=== PATIENT | female | born 1980 | race Caucasian/White ===

== ENCOUNTER 2022-07-22 14:06 | Emergency (ER) | payer MEDICAID ==
[~2022-07-22] VITALS: Ht 175.3 cm; Wt 155.1 kg
[~2022-07-22 14:06] MED LIST: ALBUPOW26; CLON0.3T PO; GABA300C10 PO; SERDISK
[2022-07-22] MEDS ORDERED: KETOROLAC TROMETH 60MG/2ML VIAL IM ONE (15:30)
[2022-07-22] MEDS ORDERED: ONDANSETRON ODT 4 MG TAB PO ONE (15:30)
[2022-07-22 15:34] LABS: Eosinophils # (auto) 0.1 10 ^3/uL (0-0.8); Eosinophils % (auto) 0.6 % (0.0-7.0); Hematocrit 33.6 % (36.0-46.0); Monocytes # (auto) 0.7 10 ^3/uL (0-1.3); Neutrophils # (auto) 8.3 10 ^3/uL (1.6-8.6)
[2022-07-22 15:35] LABS: Basophils # (auto) 0 10 ^3/uL (0-0.2); Basophils % (auto) 0.5 % (0.0-2.0); Hemoglobin 10.8 g/dL (12.2-16.2); Lymphocytes # (auto) 1.2 10 ^3/uL (0.4-5.4); Lymphocytes % (auto) 11.4 % (10.0-50.0); Mean Corpuscular Hemoglobin 26.2 pg (28.0-32.0); Mean Corpuscular Hgb Conc. 32.1 g/dL (32.0-36.0); Mean Corpuscular Volume 81.7 fL (80.0-100.0); Monocytes % (auto) 7.2 % (0.0-12.0); Neutrophils % (auto) 80.3 % (37.0-80.0); Nucleated Red Blood Cells % 0.2 %; Red Blood Cells 4.12 10^6/uL (4.0-5.20); Red Cell Distribution Width 17.2 % (11.8-14.3); White Blood Cell 10.4 10^3/uL (4.4-10.8)
[2022-07-22] MEDS ORDERED: SODIUM CHLORIDE 0.9% 1,000 ML IV ONE (15:45)
[2022-07-22 15:47] LABS: Albumin 3.3 g/dL (3.4-5.0); Calcium 8.7 mg/dL (8.5-10.1); Potassium 4.7 mmol/L (3.5-5.1)
[2022-07-22 15:47] LABS: Urine Bacteria MANY /hpf (None Seen); Urine Blood 1+ /uL (Negative); Urine Budding Yeast OCCASIONAL /hpf (None Seen); Urine Mucus FEW (None Seen); Urine Specific Gravity 1.015 (1.001-1.035); Urine WBC 135 /hpf (0 - 5)
[2022-07-22 15:51] LABS: BUN/Creatinine Ratio 6.9 (10.0-20.0); Bilirubin, Total 1.9 mg/dL (0.2-1.0); Total Protein 8.3 g/dL (6.4-8.2)
[2022-07-22] MEDS ORDERED: cefTRIAXone 1GM/50ML D5W 50 ML IV ONE (17:00)
[2022-07-22] MEDS ORDERED: HYDROcodone-ACET 5/325MG TAB PO ONE (17:30)
[2022-07-22] MEDS ORDERED: ONDA-144 PO (17:43)
[2022-07-22] MEDS ORDERED: CIPR-173 PO (17:43)
[2022-07-22] MEDS ORDERED: ACETAMINOPHEN 325 MG TAB PO ONE (18:00)
[2022-07-22 20:30] VITALS: BP 165/102
== END 2022-07-22 20:55 | disposition home or self-care (01) ==
LOC: ER 14:06
DX: N39.0 Urinary tract infection, site not specified (principal); K43.9 Ventral hernia without obstruction or gangrene; R11.2 Nausea with vomiting, unspecified; E11.9 Type 2 diabetes mellitus without complications; Z87.442 Personal history of urinary calculi; Z90.49 Acquired absence of other specified parts of digestive tract; Z98.890 Other specified postprocedural states; Z88.8 Allergy status to other drugs, medicaments and biological substances; Z88.2 Allergy status to sulfonamides; Z88.0 Allergy status to penicillin
CPT/HCPCS: 36415; 74176; 80053; 81001; 82962; 83690; 85025; 93005; 96365; 99285; J0696; J7030; Q0162

== ENCOUNTER 2023-01-22 12:53 | Inpatient (IN) | payer MEDICAID ==
[~2023-01-22] VITALS: Ht 175.3 cm; Wt 120.0 kg
[~2023-01-22 12:53] MED LIST changes: +CIPR-173 PO; +GABA-1250 PO; -GABA300C10 PO; +ONDA-144 PO
[2023-01-22 13:30] LABS: Basophils # (auto) 0.1 10 ^3/uL (0-0.2); Basophils % (auto) 0.7 % (0.0-2.0); Eosinophils # (auto) 0.1 10 ^3/uL (0-0.8); Eosinophils % (auto) 0.9 % (0.0-7.0); Hematocrit 37.2 % (36.0-46.0); Lymphocytes # (auto) 2.1 10 ^3/uL (0.4-5.4); Lymphocytes % (auto) 21.1 % (10.0-50.0); Mean Corpuscular Hemoglobin 26.9 pg (28.0-32.0); Mean Corpuscular Hgb Conc. 32.2 g/dL (32.0-36.0); Mean Corpuscular Volume 83.7 fL (80.0-100.0); Monocytes # (auto) 0.6 10 ^3/uL (0-1.3); Monocytes % (auto) 5.8 % (0.0-12.0); Neutrophils # (auto) 7.1 10 ^3/uL (1.6-8.6); Neutrophils % (auto) 71.5 % (37.0-80.0); Nucleated Red Blood Cells % 0.2 %; Red Blood Cells 4.45 10^6/uL (4.0-5.20); Red Cell Distribution Width 17.3 % (11.8-14.3)
[2023-01-22 13:47] LABS: Alanine Aminotransferase 13 U/L (7-40); Albumin 4.5 g/dL (3.2-4.8); Alkaline Phosphatase 86 U/L (46-116); Anion Gap 13 (5-15); Aspartate Aminotransferase 38 U/L (13-40); BUN/Creatinine Ratio 7.6 (10.0-20.0); Blood Urea Nitrogen 7 mg/dL (9-23); Calcium 9.4 mg/dL (8.7-10.4); Carbon Dioxide 20 mmol/L (20-30); Chloride 102 mmol/L (98-107); Glucose 98 mg/dL (74-106); Lipase 28 U/L (12-53); Potassium 3.9 mmol/L (3.5-5.1); Sodium 135 mmol/L (136-145)
[2023-01-22 13:48] LABS: Bilirubin, Total 1.3 mg/dL (0.2-1.0); Total Protein 7.5 g/dL (5.7-8.2)
[2023-01-22] MEDS ORDERED: ONDANSETRON HCL 4 MG/2 ML VIAL IV ONE (15:00)
[2023-01-22] MEDS ORDERED: SODIUM CHLORIDE 0.9% 1,000 ML IV ONE ×2 (15:00)
[2023-01-22] MEDS ORDERED: MORPHINE SULFATE 4 MG/ML SYR/VIAL IV ONE (15:00)
[2023-01-22 15:11] LABS: Urine Bacteria FEW /hpf (None Seen); Urine Blood Negative /uL (Negative); Urine Clarity HAZY (Clear); Urine Color Colorless (Yellow); Urine Protein, UAD Negative (Negative); Urine Specific Gravity 1.008 (1.001-1.035); Urine Urobilinogen Normal (Negative); Urine WBC 3 /hpf (0 - 5)
[2023-01-22] MEDS ORDERED: DOCUSATE SOD 100 MG CAP PO PRN (20:45)
[2023-01-22] MEDS ORDERED: ACETAMINOPHEN 325 MG TAB PO PRN (20:45)
[2023-01-22] MEDS: D5W/SOD CHLO 0.9% 1,000 ML IV SCH (23:03)
[2023-01-22] MEDS: HYDROcodone-ACET 5/325MG TAB PO PRN (23:04)
[2023-01-23] VITALS (7 sets, daily range): BP systolic 139–154; BP diastolic 78–95; PULSE 94–111; RESP 11–19; TEMP 98.1–98.5; O2SAT 96–100
[2023-01-23] MEDS: ONDANSETRON HCL 4 MG/2 ML VIAL IV PRN ×3 (02:37→10:56)
[2023-01-23] MEDS: MORPHINE SULFATE INJ 2 MG/ml SYRG IV PRN ×3 (02:38→19:51)
[2023-01-23] MEDS: HYDROcodone-ACET 5/325MG TAB PO PRN ×3 (04:48→15:30)
[2023-01-23 05:38] LABS: Basophils # (auto) 0.1 10 ^3/uL (0-0.2); Eosinophils # (auto) 0.1 10 ^3/uL (0-0.8); Eosinophils % (auto) 1.2 % (0.0-7.0); Hematocrit 35.4 % (36.0-46.0); Hemoglobin 11.3 g/dL (12.2-16.2); Lymphocytes # (auto) 1.9 10 ^3/uL (0.4-5.4); Lymphocytes % (auto) 26.5 % (10.0-50.0); Mean Corpuscular Volume 84.5 fL (80.0-100.0); Monocytes # (auto) 0.5 10 ^3/uL (0-1.3); Monocytes % (auto) 6.8 % (0.0-12.0); Neutrophils # (auto) 4.7 10 ^3/uL (1.6-8.6); Neutrophils % (auto) 64.5 % (37.0-80.0); Nucleated Red Blood Cells % 0.1 %; Red Blood Cells 4.19 10^6/uL (4.0-5.20); Red Cell Distribution Width 17.1 % (11.8-14.3); White Blood Cell 7.3 10^3/uL (4.4-10.8)
[2023-01-23 06:20] LABS: Albumin 4.2 g/dL (3.2-4.8); Alkaline Phosphatase 72 U/L (46-116); Anion Gap 17 (5-15); Aspartate Aminotransferase 29 U/L (13-40); Calcium 8.9 mg/dL (8.7-10.4); Carbon Dioxide 16 mmol/L (20-30); Chloride 106 mmol/L (98-107); Glucose 72 mg/dL (74-106); Potassium 3.5 mmol/L (3.5-5.1); Sodium 139 mmol/L (136-145)
[2023-01-23 06:21] LABS: Total Protein 7.3 g/dL (5.7-8.2)
[2023-01-23 06:22] LABS: Alanine Aminotransferase < 9 U/L (7-40); Blood Urea Nitrogen < 5 mg/dL (9-23)
[2023-01-23] MEDS: D5W/SOD CHLO 0.9% 1,000 ML IV SCH ×2 (10:05→23:25)
[2023-01-23] MEDS: DICYCLOMINE HCL 10 MG CAP PO SCH ×2 (18:17→22:51)
[2023-01-23] MEDS: ALBUTEROL MEDNEB 2.5 mg/3ml NEB NEB SCH (18:31)
[2023-01-23] MEDS: GABAPENTIN 300 MG CAP PO SCH (22:51)
[2023-01-23] MEDS: PANTOPRAZOLE 40 MG/10 ML VIAL INJ IV SCH (22:52)
[2023-01-23] MEDS: cloNIDine HCL 0.1 MG TAB PO SCH (22:52)
[2023-01-24] VITALS (9 sets, daily range): BP systolic 142–165; BP diastolic 86–97; PULSE 90–110; RESP 15–18; TEMP 98.1–98.9; O2SAT 94–100
[2023-01-24] MEDS: ONDANSETRON HCL 4 MG/2 ML VIAL IV PRN ×5 (00:54→20:22)
[2023-01-24] MEDS: MORPHINE SULFATE INJ 2 MG/ml SYRG IV PRN ×5 (00:57→20:25)
[2023-01-24] MEDS: DICYCLOMINE HCL 10 MG CAP PO SCH ×4 (05:53→21:08)
[2023-01-24] MEDS: GABAPENTIN 300 MG CAP PO SCH ×3 (05:53→21:07)
[2023-01-24] MEDS: hydrALAZINE HCL 20 MG/ML VL IV PRN ×3 (06:34→18:30)
[2023-01-24] MEDS: ALBUTEROL MEDNEB 2.5 mg/3ml NEB NEB SCH ×2 (07:09→22:21)
[2023-01-24] MEDS: PANTOPRAZOLE 40 MG/10 ML VIAL INJ IV SCH ×2 (10:48→21:07)
[2023-01-24] MEDS: cloNIDine HCL 0.1 MG TAB PO SCH ×2 (10:48→21:14)
[2023-01-24] MEDS: D5W/SOD CHLO 0.9% 1,000 ML IV SCH (16:15)
[2023-01-24] MEDS: HYDROcodone-ACET 5/325MG TAB PO PRN (18:36)
[2023-01-25] VITALS (9 sets, daily range): BP systolic 134–164; BP diastolic 92–99; PULSE 71–119; RESP 15–19; TEMP 97.7–98.6; O2SAT 92–100
[2023-01-25] MEDS: ONDANSETRON HCL 4 MG/2 ML VIAL IV PRN ×6 (00:47→23:00)
[2023-01-25] MEDS: MORPHINE SULFATE INJ 2 MG/ml SYRG IV PRN ×5 (00:48→22:02)
[2023-01-25] MEDS: D5W/SOD CHLO 0.9% 1,000 ML IV SCH ×2 (02:05→16:50)
[2023-01-25] MEDS: DICYCLOMINE HCL 10 MG CAP PO SCH ×4 (05:06→22:00)
[2023-01-25] MEDS: GABAPENTIN 300 MG CAP PO SCH ×3 (05:07→22:01)
[2023-01-25 06:00] LABS: INR 1.1 (0.9-1.15); Partial Thromboplastin Time 29.9 SEC (24.5-34.5); Prothrombin Time 11.5 sec (9.3-11.8)
[2023-01-25] MEDS ORDERED: LIDOCAINE VISCOUS 2% 15ML UD ONE (06:49)
[2023-01-25] MEDS: PANTOPRAZOLE 40 MG/10 ML VIAL INJ IV SCH ×2 (09:20→22:02)
[2023-01-25] MEDS: cloNIDine HCL 0.1 MG TAB PO SCH ×2 (09:22→22:01)
[2023-01-25] MEDS: ALBUTEROL MEDNEB 2.5 mg/3ml NEB NEB SCH ×2 (09:48→22:00)
[2023-01-25] MEDS ORDERED: fentaNYL CITRATE 100 MCG/2 ML VL ONE (12:35)
[2023-01-25] MEDS ORDERED: MIDAZOLAM HCL 2MG/2ML 2ml VIAL (1mg/ml) ONE (12:36)
[2023-01-25] MEDS ORDERED: DexAMETHasone SOD PHOS 10MG/1ML VIAL INJ ONE (12:47)
[2023-01-25] MEDS ORDERED: PROPOFOL 10 MG/ML 20 ML IV ONE (12:47)
[2023-01-25] MEDS: NYSTATIN (MOUTH-THROAT) 500,000 UNITS/5 ML SUSP MT SCH ×2 (18:48→22:00)
[2023-01-25] MEDS: HYDROcodone-ACET 5/325MG TAB PO PRN (18:48)
[2023-01-25] MEDS: SUCRALFATE 1 GM/10 ML ORAL SUSP PO SCH (18:49)
[2023-01-26] VITALS (7 sets, daily range): BP systolic 123–132; BP diastolic 67–87; PULSE 71–89; RESP 14–19; TEMP 37.2; O2SAT 94–96
[2023-01-26] MEDS: DICYCLOMINE HCL 10 MG CAP PO SCH ×2 (06:19→12:00)
[2023-01-26] MEDS: ONDANSETRON HCL 4 MG/2 ML VIAL IV PRN ×2 (06:19→14:57)
[2023-01-26] MEDS: GABAPENTIN 300 MG CAP PO SCH ×2 (06:19→14:57)
[2023-01-26] MEDS: NYSTATIN (MOUTH-THROAT) 500,000 UNITS/5 ML SUSP MT SCH ×2 (06:19→12:00)
[2023-01-26] MEDS: SUCRALFATE 1 GM/10 ML ORAL SUSP PO SCH ×2 (06:19→12:00)
[2023-01-26] MEDS: MORPHINE SULFATE INJ 2 MG/ml SYRG IV PRN ×2 (06:28→14:58)
[2023-01-26] MEDS: PANTOPRAZOLE 40 MG/10 ML VIAL INJ IV SCH (09:21)
[2023-01-26] MEDS: cloNIDine HCL 0.1 MG TAB PO SCH (09:22)
[2023-01-26] MEDS: HYDROcodone-ACET 5/325MG TAB PO PRN (09:22)
[2023-01-26] MEDS: ALBUTEROL MEDNEB 2.5 mg/3ml NEB NEB SCH (10:04)
[2023-01-26] MEDS ORDERED: SUCR1SUS26 PO (14:11)
[2023-01-26] MEDS ORDERED: DICY10CA PO (14:11)
[2023-01-26] MEDS ORDERED: NYS5LQ MT (14:11)
[2023-01-26] MEDS ORDERED: PANT40T PO (14:11)
[2023-01-26 16:19] LABS: Urine Bacteria FEW /hpf (None Seen); Urine Blood Negative /uL (Negative); Urine Clarity HAZY (Clear); Urine Color Yellow (Yellow); Urine Mucus FEW (None Seen); Urine Protein, UAD TRACE (Negative); Urine Specific Gravity 1.026 (1.001-1.035); Urine WBC <1 /hpf (0 - 5); Urine pH 5.5 (5.0-8.0)
[2023-01-26] MEDS ORDERED: ALBUTEROL MEDNEB 2.5 mg/3ml NEB ONE (18:18)
== END 2023-01-26 17:45 | disposition home or self-care (01) | DRG 241 ==
LOC: EEVIPCON 12:53 → ER 12:53 → OVERFLOW 22:50 → CENTRAL 01-23 16:45
PROVIDERS: ADMIT Nurse Practitioner Family; ATTEND Hospitalist
PROC: 0DB78ZX Excision of Stomach, Pylorus, Via Natural or Artificial Opening Endoscopic, Diagnostic (ICD-10-PCS; principal; 2023-01-25 12:35)
DX: K29.70 Gastritis, unspecified, without bleeding (principal); K76.0 Fatty (change of) liver, not elsewhere classified; E11.9 Type 2 diabetes mellitus without complications; K20.90 Esophagitis, unspecified without bleeding; N20.0 Calculus of kidney; I16.0 Hypertensive urgency; I10 Essential (primary) hypertension; K44.9 Diaphragmatic hernia without obstruction or gangrene; K31.7 Polyp of stomach and duodenum; R16.1 Splenomegaly, not elsewhere classified; K59.00 Constipation, unspecified; Z88.0 Allergy status to penicillin; Z88.2 Allergy status to sulfonamides; Z88.8 Allergy status to other drugs, medicaments and biological substances; Z87.442 Personal history of urinary calculi; Z83.3 Family history of diabetes mellitus; Z82.5 Family history of asthma and other chronic lower respiratory diseases; Z82.49 Family history of ischemic heart disease and other diseases of the circulatory system; Z90.49 Acquired absence of other specified parts of digestive tract
CPT/HCPCS: 36415; 70450; 74176; 80053; 81001; 82962; 83690; 84702; 85025; 85610; 85730; 86850; 86900; 86901; 94640; 96361; 96374; 96375; 96376; C9113; G0378; J1100; J2250; J2405; J2704; J7042

== ENCOUNTER 2023-01-28 09:32 | Emergency (ER) | payer MEDICAID ==
[~2023-01-28] VITALS: Ht 175.3 cm; Wt 123.0 kg
[~2023-01-28 09:32] MED LIST changes: -CIPR-173 PO; +DICY10CA PO; +NYS5LQ MT; +PANT40T PO; +SUCR1SUS26 PO
[2023-01-28 11:27] LABS: Alanine Aminotransferase 22 U/L (7-40); Albumin 4.1 g/dL (3.2-4.8); Alkaline Phosphatase 68 U/L (46-116); Anion Gap 10 (5-15); Aspartate Aminotransferase 45 U/L (13-40); Calcium 8.8 mg/dL (8.7-10.4); Carbon Dioxide 25 mmol/L (20-30); Chloride 104 mmol/L (98-107); Glucose 126 mg/dL (74-106); Lipase 27 U/L (12-53); Sodium 139 mmol/L (136-145)
[2023-01-28 11:28] LABS: Bilirubin, Total 1.2 mg/dL (0.2-1.0); Total Protein 6.9 g/dL (5.7-8.2)
[2023-01-28 11:29] LABS: BUN/Creatinine Ratio 6.5 (10.0-20.0); Blood Urea Nitrogen < 5 mg/dL (9-23)
[2023-01-28 11:32] LABS: Urine Bacteria FEW /hpf (None Seen); Urine Blood TRACE /uL (Negative); Urine Clarity HAZY (Clear); Urine Color Yellow (Yellow); Urine Mucus FEW (None Seen); Urine Protein, UAD 1+ (Negative); Urine Specific Gravity 1.038 (1.001-1.035); Urine WBC 62 /hpf (0 - 5)
[2023-01-28 12:18] LABS: Basophils # (auto) 0 10 ^3/uL (0-0.2); Eosinophils # (auto) 0 10 ^3/uL (0-0.8); Lymphocytes # (auto) 1.5 10 ^3/uL (0.4-5.4); Monocytes # (auto) 0.6 10 ^3/uL (0-1.3); Nucleated Red Blood Cells % 0.1 %
[2023-01-28 12:23] LABS: Basophils % (auto) 0.8 % (0.0-2.0); Eosinophils % (auto) 0.7 % (0.0-7.0); Hematocrit 33.8 % (36.0-46.0); Lymphocytes % (auto) 28.5 % (10.0-50.0); Mean Corpuscular Hemoglobin 26.9 pg (28.0-32.0); Mean Corpuscular Hgb Conc. 32.5 g/dL (32.0-36.0); Mean Corpuscular Volume 82.6 fL (80.0-100.0); Monocytes % (auto) 11.6 % (0.0-12.0); Neutrophils # (auto) 3.1 10 ^3/uL (1.6-8.6); Neutrophils % (auto) 58.4 % (37.0-80.0); Red Blood Cells 4.09 10^6/uL (4.0-5.20); Red Cell Distribution Width 17.2 % (11.8-14.3); White Blood Cell 5.3 10^3/uL (4.4-10.8)
[2023-01-28] MEDS ORDERED: CIPROFLOXACIN HCL 500 MG TAB PO ONE (13:30)
[2023-01-28] MEDS ORDERED: CIPR-173 PO (13:32)
[2023-01-28] MEDS ORDERED: ZOFR4T PO (13:32)
[2023-01-28] MEDS ORDERED: ONDANSETRON ODT 4 MG TAB PO ONE (13:45)
[2023-01-28 15:19] VITALS: BP 159/104; PULSE 116; RESP 15; TEMP 97.6; O2SAT 96
[2023-01-28] MEDS ORDERED: HYDR-4902 PO (15:34)
== END 2023-01-28 15:42 | disposition home or self-care (01) ==
LOC: ER 09:32
DX: N39.0 Urinary tract infection, site not specified (principal); R11.2 Nausea with vomiting, unspecified; E11.9 Type 2 diabetes mellitus without complications; I10 Essential (primary) hypertension; Z87.442 Personal history of urinary calculi; Z98.890 Other specified postprocedural states; Z90.49 Acquired absence of other specified parts of digestive tract
CPT/HCPCS: 36415; 80053; 81001; 83690; 99283; Q0162

== ENCOUNTER 2023-10-22 15:20 | Inpatient (IN) | payer MEDICAID ==
[~2023-10-22] VITALS: Ht 175.3 cm; Wt 113.3 kg
[~2023-10-22 15:20] MED LIST changes: +CIPR-173 PO; +HYDR-4902 PO; +ZOFR4T PO
[2023-10-22] MEDS: SODIUM CHLORIDE 0.9% 1,000 ML IV ONE (16:05)
[2023-10-22] MEDS: MORPHINE SULFATE 4 MG/ML SYR/VIAL IV ONE ×2 (16:12→21:23)
[2023-10-22] MEDS: ONDANSETRON HCL 4 MG/2 ML VIAL IV ONE ×2 (16:12→21:21)
[2023-10-22 16:20] VITALS: PULSE 104; RESP 18; O2SAT 97
[2023-10-22 16:35] LABS: Basophils # (auto) 0.1 10 ^3/uL (0-0.2); Basophils % (auto) 0.8 % (0.0-2.0); Eosinophils # (auto) 0.1 10 ^3/uL (0-0.8); Eosinophils % (auto) 0.9 % (0.0-7.0); Hematocrit 41.9 % (36.0-46.0); Hemoglobin 13.8 g/dL (12.2-16.2); Lymphocytes # (auto) 1.4 10 ^3/uL (0.4-5.4); Lymphocytes % (auto) 17.2 % (10.0-50.0); Mean Corpuscular Hgb Conc. 32.9 g/dL (32.0-36.0); Monocytes # (auto) 0.4 10 ^3/uL (0-1.3); Monocytes % (auto) 4.5 % (0.0-12.0); Neutrophils # (auto) 6.4 10 ^3/uL (1.6-8.6); Neutrophils % (auto) 76.6 % (37.0-80.0); Red Cell Distribution Width 18.8 % (11.8-14.3); White Blood Cell 8.4 10^3/uL (4.4-10.8)
[2023-10-22 16:55] LABS: Alanine Aminotransferase 23 U/L (7-40); Albumin 4.6 g/dL (3.2-4.8); Alkaline Phosphatase 79 U/L (46-116); Anion Gap 10 (5-15); Aspartate Aminotransferase 21 U/L (13-40); BUN/Creatinine Ratio 12.9 (10.0-20.0); Bilirubin, Total 0.6 mg/dL (0.2-1.0); Blood Urea Nitrogen 11 mg/dL (9-23); Calcium 9.7 mg/dL (8.7-10.4); Carbon Dioxide 24 mmol/L (20-30); Chloride 107 mmol/L (98-107); Glucose 90 mg/dL (74-106); Lipase 35 U/L (12-53); Potassium 3.7 mmol/L (3.5-5.1); Sodium 141 mmol/L (136-145); Total Protein 8.1 g/dL (5.7-8.2)
[2023-10-22 19:11] LABS: Urine Bacteria MOD /hpf (None Seen); Urine Blood TRACE /uL (Negative); Urine Clarity Turbid (Clear); Urine Color Yellow (Yellow); Urine Mucus FEW (None Seen); Urine Protein, UAD TRACE (Negative); Urine Specific Gravity 1.032 (1.001-1.035); Urine Urobilinogen Normal (Negative); Urine WBC 62 /hpf (0 - 5); Urine pH 5.5 (5.0-9.0)
[2023-10-22] MEDS: cefTRIAXone 1GM/50ML D5W 50 ML IV ONE (20:30)
[2023-10-22] MEDS ORDERED: ACETAMINOPHEN 325 MG TAB PO PRN (20:45)
[2023-10-22] MEDS ORDERED: LACTATED RINGER'S 1,000 ML IV ONE (20:45)
[2023-10-22] MEDS: levoFLOXacin 500MG 100 ML IV ONE (21:21)
[2023-10-22] MEDS: TAMSULOSIN HYDROCHLORIDE 0.4 MG CAP PO SCH (21:33)
[2023-10-22] MEDS: LACTATED RINGER'S 1,000 ML IV ONE (21:33)
[2023-10-22] MEDS: SODIUM CHLOR 0.9% PF (SALINE LOCK) 10ML VIAL/SYR IV SCH (22:09)
[2023-10-22] MEDS: HYDROcodone-ACET 5/325MG TAB PO PRN (23:51)
[2023-10-23] MEDS: HYDROmorphone HCL 2 MG/ML VL/or syr IV PRN (01:57)
[2023-10-23 04:42] VITALS: PULSE 98; O2SAT 96
[2023-10-23] MEDS: ONDANSETRON HCL 4 MG/2 ML VIAL IV PRN (04:55)
[2023-10-23] MEDS: cefTRIAXone 1GM/50ML D5W 50 ML IV SCH (08:49)
[2023-10-23 09:20] VITALS: BP 151/93; PULSE 107; RESP 18; TEMP 98; O2SAT 97
[2023-10-23 13:15] VITALS: BP 161/89; PULSE 110; RESP 20; TEMP 98.6; O2SAT 94
[2023-10-23] MEDS: SODIUM CHLORIDE 0.9% 1,000 ML IV SCH (14:50)
[2023-10-23 16:43] VITALS: BP 157/101; PULSE 109; RESP 18; TEMP 99.1; O2SAT 96
[2023-10-23 19:40] VITALS: PULSE 96; RESP 18; O2SAT 94
[2023-10-23 21:00] VITALS: BP 151/90; PULSE 96; RESP 16; TEMP 98.6; O2SAT 98
[2023-10-24] VITALS (7 sets, daily range): BP systolic 113–168; BP diastolic 64–108; PULSE 64–91; RESP 17–18; TEMP 98.3–99.1; O2SAT 94–99
[2023-10-24] MEDS ORDERED: MANNITOL FTV 25% 12.5 GM/50 ML 50 ML IV ONE (09:30)
[2023-10-25] VITALS (7 sets, daily range): BP systolic 105–155; BP diastolic 73–94; PULSE 72–97; RESP 16–20; TEMP 97.7–98.7; O2SAT 93–98
[2023-10-25 11:10] LABS: INR 0.89 (0.9-1.15); Partial Thromboplastin Time < 20.0 SEC (24.5-34.5); Prothrombin Time 9.5 sec (9.3-11.8)
[2023-10-25] MEDS: IOHEXOL 300 MG/ML 100ML BOTTLE IJ ONE (12:56)
[2023-10-25] MEDS ORDERED: MIDAZOLAM HCL 2MG/2ML 2ml VIAL (1mg/ml) ONE (13:40)
[2023-10-25] MEDS ORDERED: fentaNYL CITRATE 100 MCG/2 ML VL ONE ×2 (13:40→15:03)
[2023-10-25] MEDS: CHLORHEXIDINE 4% TOPICAL soln 118ml TOP ONE (13:48)
[2023-10-25] MEDS ORDERED: MANNITOL FTV 25% 12.5 GM/50 ML 50 ML IV ONE (14:45)
[2023-10-25] MEDS ORDERED: PROPOFOL 10 MG/ML 20 ML IV ONE (15:00)
[2023-10-25] MEDS ORDERED: HYDROmorphone HCL 2 MG/ML VL/or syr IV PRN ×2 (15:15)
[2023-10-25] MEDS ORDERED: ONDANSETRON HCL 4 MG/2 ML VIAL IV ONE (15:28)
[2023-10-25] MEDS: ONDANSETRON HCL 4 MG/2 ML VIAL IV ONE (20:38)
[2023-10-26 05:00] VITALS: BP 119/85; PULSE 99; RESP 17; TEMP 98.3; O2SAT 95
[2023-10-26 09:50] VITALS: BP 125/70; PULSE 82; RESP 20; TEMP 98.5; O2SAT 92
[2023-10-26 13:21] VITALS: BP 120/68; PULSE 64; RESP 20; TEMP 98.5; O2SAT 98
[2023-10-26 17:00] VITALS: BP 134/82; PULSE 93; RESP 20; TEMP 98.6; O2SAT 94
[2023-10-26] MEDS: DOCUSATE SOD 100 MG CAP PO PRN (19:51)
[2023-10-26 21:00] VITALS: BP 149/99; PULSE 100; RESP 18; TEMP 99.1; O2SAT 96
[2023-10-27 05:00] VITALS: BP 153/96; PULSE 92; RESP 18; TEMP 98.5; O2SAT 97
[2023-10-27 08:30] VITALS: BP 145/98; PULSE 101; RESP 20; TEMP 98.7; O2SAT 98
[2023-10-27] MEDS ORDERED: TAMS-35 PO (10:40)
[2023-10-27] MEDS ORDERED: CIPR-173 PO (10:40)
[2023-10-27] MEDS ORDERED: TRAM-626 PO (10:40)
[2023-10-27 12:48] VITALS: BP 120/78; PULSE 70; RESP 20; TEMP 97.4; O2SAT 96
[2023-10-27 16:30] VITALS: BP_SYST 140; PULSE 113; RESP 20; TEMP 98.4; O2SAT 93
[2023-10-27 17:18] VITALS: BP 140/80; PULSE 113; RESP 18; TEMP 98.4; O2SAT 93
== END 2023-10-27 18:10 | disposition home or self-care (01) | DRG 710 ==
LOC: ER 15:20 → OVERFLOW 20:50 → CENTRAL 10-23 04:36
PROVIDERS: ADMIT Internal Medicine; ATTEND Family Medicine
PROC: 0TC68ZZ Extirpation of Matter from Right Ureter, Via Natural or Artificial Opening Endoscopic (ICD-10-PCS; principal; 2023-10-25 13:38)
DX: A41.9 Sepsis, unspecified organism (principal); N13.6 Pyonephrosis; E11.9 Type 2 diabetes mellitus without complications; K43.9 Ventral hernia without obstruction or gangrene; J45.909 Unspecified asthma, uncomplicated; E86.0 Dehydration; I10 Essential (primary) hypertension; Z88.0 Allergy status to penicillin; Z79.899 Other long term (current) drug therapy; Z90.49 Acquired absence of other specified parts of digestive tract; Z79.4 Long term (current) use of insulin
CPT/HCPCS: 36415; 74176; 80053; 81001; 83605; 83690; 84702; 85025; 85610; 85730; 87040; 87086; 87088; 87186; 96365; 96375; G0378; J1956; J2250; J2405; J2704